=== PATIENT | female | born 1980 | race Caucasian/White ===

== ENCOUNTER 2018-06-11 14:02 | Emergency (ER) | payer BC, OTHER ==
[2018-06-11 14:17] VITALS: BP 165/115; PULSE 102; TEMP 98.2; BMI 32.1
--- NOTE | 2018-06-11 15:07 | PDOC ---
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 patient also report laceration to side of left middle finger 06/11/18 15:02 06/11/18 15:06 Timing/Duration: 1-3 hours Past History - Past Medical History Allergies/Adverse Reactions: Allergies Allergy/AdvReac Type Severity Reaction Status Date / Time No Known Allergies Allergy Verified 06/11/18 14:13 Home Medications: Ambulatory Orders Butalb/Acetaminophen/Caffeine [Fioricet 50-300-40 mg Capsule] 1 each PO Q6H PRN #20 capsule 06/11/18 Ondansetron [Zofran Odt -] 4 mg SL TID PRN #12 od.tablet 06/11/18 COPD: No Other medical history: HX MIGRANES - Immunization History Immunization Up to Date: Yes - Suicide/Smoking/Psychosocial Hx Smoking History: Never smoked Information on smoking cessation initiated: No Hx Alcohol Use: No Drug/Substance Use Hx: No Substance Use Type: None Review of Systems - Review of Systems Able to Perform ROS?: Yes Is the patient limited Swedish proficient: No Constitutional: No: Weakness HEENTM: Yes: Symptoms Reported, See HPI, Blurred Vision, Recent change in vision. No: Eye Pain, Tearing, Double Vision, Cataracts, Ear Pain, Ocular Prothesis, Ear Discharge, Nose Pain, Nose Congestion, Tinnitus, Nose Bleeding, Hearing Loss, Throat Pain, Throat Swelling, Mouth Pain, Dental Problems, Difficulty Swallowing, Mouth Swelling, Other Respiratory: No: Symptoms reported Cardiac (ROS): No: Symptoms Reported ABD/GI: No: Symptoms Reported, See HPI, Abdominal Distended, Abd. Pain w/ defecation, Blood Streaked Bowels, Constipated, Diarrhea, Difficulty Swallowing , Nausea, Poor Appetite, Poor Fluid Intake, Rectal Bleeding, Vomiting, Indigestion, Abdominal cramping, Tarry Stools, Other Neurological: Yes: See HPI, Headache, Dizziness. No: Numbness, Paresthesia, Pre -Existing Deficit, Seizure, Tingling, Tremors, Weakness, Unsteady Gait, Ataxia, Other All Other Systems: Reviewed and Negative *Physical Exam - Vital Signs Last Vital Signs Temp Pulse Resp BP Pulse Ox 98.2 F 102 H 16 165/115 H 100 06/11/18 14:14 06/11/18 14:14 06/11/18 14:14 06/11/18 14:14 06/11/18 14:14 - Physical Exam Comments: 06/11/18 15:02 GENERAL: Well developed, well nourished. Awake and alert. No acute distress. HEENT: mild soft tissue swelling to forehead with 1mm superfical laceration. PERRLA, EOMI. No conjunctival pallor. Sclera are non-icteric. Moist mucous membranes. Oropharynx is clear. NECK: Supple. Full ROM. No JVD. Carotid pulses 2+ and symmetric, without bruits. No thyromegaly. No lymphadenopathy. CARDIOVASCULAR: Regular rate and rhythm. No murmurs, rubs, or gallops. Distal pulses are 2+ and symmetric. PULMONARY: No evidence of respiratory distress. Lungs clear to auscultation bilaterally. No wheezing, rales or rhonchi. ABDOMINAL: Soft. Non-tender. Non-distended. No rebound or guarding. No organomegaly. Normoactive bowel sounds. MUSCULOSKELETAL Normal range of motion at all joints. No bony deformities or tenderness. No CVA tenderness. EXTREMITIES: No cyanosis. No clubbing. No edema. No calf tenderness. SKIN: 1 cm superficial laceration to anterior forehead with minimal bleeding and mild surrounding swelling. no ecchymosis or discoloration to skin. another small 1cm laceration to lateral aspect of left middle finger with no active bleeding Warm and dry. Normal capillary refill. No rashes. No jaundice. NEUROLOGICAL: Alert, awake, appropriate. Normal speech. Toes are down-going bilaterally. Gait is normal without ataxia. normal tandem walking PSYCHIATRIC: Cooperative. Good eye contact. Appropriate mood and affect. 06/11/18 16:53 General Appearance: Yes: Nourished, Appropriately Dressed. No: Apparent Distress Procedures - Laceration/Wound Repair Anterior Face Wound Length: to 2.5 cm (1cm) Wound Explored: clean Wound's Depth, Shape: superficial, linear Irrigated w/ Saline: No Betadine Prep: Yes Amount of Anesthetic (ccs): 0 Wound Repaired With: Dermabond Sterile Dressing Applied: Yes Splint Applied: No Sling Applied: No Progress: 06/11/18 16:56 1cm superficial wound to forehead cleaned with betadine and closed with dermabond. 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 patient also report laceration to side of left middle finger. exam significant for 1mm laceration to anterior forehead with mild surrounding swelling. no ecchymosis or bruising to forehead. another 1cm superficial laceration to lateral aspect of left middle finger. normal neuro exam. wound cleaned and closed with betadine. hcg and head CT w/o contrast ordered. 06/11/18 16:[address] shows no acute intracranial hemorrhage or pathology. Patient stable for discharge on fioricet for headache and zofran as needed for nausea with strict follow-up *DC/Admit/Observation/Transfer Diagnosis at time of Disposition: Head contusion Qualifiers: Encounter type: initial encounter Contusion of head detail: other part of head Qualified Code(s): S00.83XA - Contusion of other part of head, initial encounter Forehead laceration Qualifiers: Encounter type: initial encounter Qualified Code(s): S01.81XA - Laceration without foreign body of other part of head, initial encounter Headache Qualifiers: Headache type: post-traumatic Headache chronicity pattern: acute headache Intractability: not intractable Qualified Code(s): G44.319 - Acute post- traumatic headache, not intractable - Discharge Dispostion Disposition: HOME Condition at time of disposition: Stable Decision to Admit order: No - Prescriptions Prescriptions: Butalb/Acetaminophen/Caffeine [Fioricet 50-300-40 mg Capsule] 1 each PO Q6H PRN #20 capsule PRN Reason: Headache Ondansetron [Zofran Odt -] 4 mg SL TID PRN #12 od.tablet PRN Reason: nausea - Referrals Referrals: Rene Klien MD [Primary Care Provider] - - Patient Instructions Printed Discharge Instructions: DI for Closed Head Injury Additional Instructions: take medications as prescribed as needed for symptoms. rest. come back to ER if worsening dizziness, worsening headache, persistent vomiting or weakness - Post Discharge Activity Forms/Work/School Notes: Back to Work
== END 2018-06-11 16:42 | disposition home or self-care (01) ==
LOC: JERFT 14:02
PROC: 0HQ1XZZ Repair Face Skin, External Approach (ICD-10-PCS; principal; 2018-06-11)
DX: H53.8 Other visual disturbances (principal); S01.81XA Laceration without foreign body of other part of head, initial encounter; S00.83XA Contusion of other part of head, initial encounter; G44.319 Acute post-traumatic headache, not intractable; W18.30XA Fall on same level, unspecified, initial encounter; Y35.891A Legal intervention involving other specified means, law enforcement official injured, initial encounter; Y93.89 Activity, other specified; Y92.89 Other specified places as the place of occurrence of the external cause; Y99.0 Civilian activity done for income or pay
CPT/HCPCS: 70450-TC; 84703; 99281-25

== ENCOUNTER 2018-06-27 10:11 | Emergency (ER) | payer OTHER ==
[2018-06-27 10:22] VITALS: BP 150/105; PULSE 95; TEMP 98.9; BMI 32.6
--- NOTE | 2018-06-27 11:13 | PDOC ---
History of Present Illness <Kyle Rosado - Last Filed: 06/27/18 11:25> - General History Source: Patient - History of Present Illness Timing/Duration: reports: other Severity: reports: moderate Associated Symptoms: reports: earache, nasal congestion. denies: cough, facial pain, fever/chills, sore throat <Dmitriy Willams - Last Filed: 06/27/18 11:27> - General Chief Complaint: Revisit, Lab Variance Stated Complaint: Revisit, Lab Variance [employer] Time Seen by Provider: 06/27/18 11:03 Past History <Kyle Rosado - Last Filed: 06/27/18 11:25> - Past Medical History COPD: No - Immunization History Immunization Up to Date: Yes - Suicide/Smoking/Psychosocial Hx Smoking History: Never smoked Have you smoked in the past 12 months: No Information on smoking cessation initiated: No Hx Alcohol Use: No Drug/Substance Use Hx: No Substance Use Type: None <Dmitriy Willams - Last Filed: 06/27/18 11:27> - Past Medical History Allergies/Adverse Reactions: Allergies Allergy/AdvReac Type Severity Reaction Status Date / Time No Known Allergies Allergy Verified 06/27/18 10:22 Home Medications: Ambulatory Orders Amoxicillin - [Amoxicillin 875mg Tablet -] 875 mg PO BID #14 tab 06/27/18 Ciprofloxacin HCl/Dexameth [Ciprodex Otic Suspension] 4 drop BID #1 bottle Labetalol HCl 100 mg PO BID 06/27/18 Review of Systems - Review of Systems Constitutional: No: Chills, Fever HEENTM: Yes: Ear Pain, Nose Congestion. No: Throat Pain Respiratory: No: Cough <Dmitriy Willams - Last Filed: 06/27/18 11:27> *Physical Exam - Vital Signs Last Vital Signs Temp Pulse Resp BP Pulse Ox 98.9 F 95 H 16 150/105 H 100 06/27/18 10:15 06/27/18 10:15 06/27/18 10:15 06/27/18 10:15 06/27/18 10:15 <Kyle Rosado - Last Filed: 06/27/18 11:25> - Vital Signs Last Vital Signs Temp Pulse Resp BP Pulse Ox 98.9 F 95 H 16 150/105 H 100 06/27/18 10:15 06/27/18 10:15 06/27/18 10:15 06/27/18 10:15 06/27/18 10:15 - Physical Exam General Appearance: Yes: Appropriately Dressed. No: Apparent Distress HEENT: positive: Normal Voice, Pharynx Normal, Other (b/l conjunctival erythema , no discharge currently). negative: TMs Normal, Scleral Icterus (L), Tonsillar Exudate, Tonsillar Erythema Neck: positive: Supple. 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 NML intact, Fully Oriented, Alert, Normal Mood/ Affect, Motor Strength 5/5 <Dmitriy Willams - Last Filed: 06/27/18 11:27> Moderate Sedation - Procedure Monitoring Vital Signs: Procedure Monitoring Vital Signs Temperature 98.9 F 06/27/18 10:15 Pulse Rate 95 H 06/27/18 10:15 Respiratory Rate 16 06/27/18 10:15 Blood Pressure 150/105 H 06/27/18 10:15 O2 Sat by Pulse Oximetry (%) 100 06/27/18 10:15 <Kyle Rosado - Last Filed: 06/27/18 11:25> - Procedure Monitoring Vital Signs: Procedure Monitoring Vital Signs Temperature 98.9 F 06/27/18 10:15 Pulse Rate 95 H 06/27/18 10:15 Respiratory Rate 16 06/27/18 10:15 Blood Pressure 150/105 H 06/27/18 10:15 O2 Sat by Pulse Oximetry (%) 100 06/27/18 10:15 <Dmitriy Willams - Last Filed: 06/27/18 11:27> Medical Decision Making - Medical Decision Making 06/27/18 11:07 38 yo F, no sig hx, here w/ b/l ear pain, L>R w/ congestion and b/l conjunctival erythema and discharge x 2 days. No cough, sore throat, body aches , f/c. 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 Had neg head CT. States since injury she may have mild occipital head/neck pain that usually resolves on own. No BOOTH currently and denies dizziness, visual changes, memory changes, n/v. Has not yet returned to work for precautionary reasons. Has not f/u with her pmd or neuro since See exam URI w/ otitis externa -dc w/ abx drops and po abx 2/2 ? OME as well Intermittent BOOTH since head injury > 2 weeks ago No BOOTH currently and no other neuro sxs Neg head CT on prior visit Doubt concussion at this time Neuro intact -to f/u with PMD Elevated BP Did not take BP meds today Asx from BP standpoint -pmd f/u <Dmitriy Willams - Last Filed: 06/27/18 11:27> *DC/Admit/Observation/Transfer <Kyle Rosado - Last Filed: 06/27/18 11:25> <Dmitriy Willams - Last Filed: 06/27/18 11:27> Diagnosis at time of Disposition: Otitis externa Qualifiers: Otitis externa type: unspecified type Chronicity: acute Laterality: left Qualified Code(s): H60.502 - Unspecified acute noninfective otitis externa, left ear - Discharge Dispostion Disposition: HOME Condition at time of disposition: Good - Prescriptions Prescriptions: Amoxicillin - [Amoxicillin 875mg Tablet -] 875 mg PO BID #14 tab Ciprofloxacin HCl/Dexameth [Ciprodex Otic Suspension] 4 drop BID #1 bottle - Patient Instructions Printed Discharge Instructions: DI for Otitis Externa Additional Instructions: You have an infection in your left ear canal and was started on antibiotics ear drops You were also started on oral antibiotics Regarding pink eye, it is contagious. Stay home until condition clears up Your BP was elevated today. Please take your BP medication as soon as you get home Return for worsening of symptoms as discussed
== END 2018-06-27 11:29 | disposition home or self-care (01) ==
LOC: JERFT 10:11
DX: H60.502 Unspecified acute noninfective otitis externa, left ear (principal)
CPT/HCPCS: 99281-25

== ENCOUNTER 2020-01-07 14:15 | Emergency (ER) | payer OTHER ==
[2020-01-07 14:24] VITALS: BP 156/106; PULSE 81; TEMP 98.7; BMI 31.5
== END 2020-01-07 15:30 | disposition home or self-care (01) ==
LOC: JERFT 14:15
DX: S93.601A Unspecified sprain of right foot, initial encounter (principal); V49.40XA Driver injured in collision with unspecified motor vehicles in traffic accident, initial encounter
CPT/HCPCS: 73630-TC-RT-FY; 99283-25